=== PATIENT | female | born 1960 | race Caucasian/White ===

== ENCOUNTER 2021-07-25 13:02 | Outpatient (CLI) | payer MEDICARE, MEDICAID, SELFPAY | END 2021-07-25 13:03 | disposition home or self-care (01) | LOC: CHSLAB 13:08 | PROVIDERS: PCP Family Medicine; Visit Provider Specialist | DX: L30.4 Erythema intertrigo (principal) | CPT/HCPCS: 87070; 87147; 87186; 87205 ==